=== PATIENT | female | born 1980 | race Caucasian/White ===

== ENCOUNTER 2016-09-20 10:21 | Emergency (ER) | payer BC ==
[~2016-09-20] VITALS: Ht 162.6 cm; Wt 46.8 kg
[~2016-09-20 10:21] MED LIST: ALPRAZOLAM; AMOXICILLIN; AMOXICILLIN875 MG PO; ASPIRIN 32325 MG/TAB PO; AUGMENTIN 875 M1 TAB PO; B-121000 MCG INJ; B12 INJECTIONS; COLACE 100100 MG/CAP PO; DEPAKOTE250 M1 PO; DIAZEPAM PO; DROSPIRENONE; FAMILY PHARMAC0.4 MG PO; FLEXERIL 1010 MG/TAB PO; FOLIC ACID0.4 MG PO; FOLIC ACID1 MG PO; GIANVI 3 MG-0.01 TAB PO; HYDROCODONE/APAP; IMITREX 25MG TA25 MG PO; IRON 58.5 MG-251 TA1 PO; IRON50 MG PO; MAXALT10 MG PO; MINIPRESS 1M1 MG/CAP PO; NAPROXEN 3375 MG/TAB PO; NORCO 325 MG-51 TAB PO; NORCO 325 MG-7.1 TAB PO; OMNICEF 300MG300 MG PO; PERCOCET 325 MG1 TA2 PO; PHENERGAN W/CO120 M1 PO; PREDNISONE 20MG20 MG PEG; PREDNISONE20 MG PO; PRENATAL1 TA1 PO; PROVENTIL0.09 MG/A1 IH; SEROQUEL; TYLENOL 500MG500 MG PO; ULTRAM ER100 MG PO; VALIUM 5MG T5 MG/TAB PO; VIT D; VITAMIN D 50,1.25 MG PO; VITAMIN D8000 IU/ML PO; WELLBUTRIN PO; XANAX .25M0.25 MG/TA PO; ZITHROMAX Z PA250 MG PO; ZOFRAN 4MG T4 MG/TAB PO; ZOLOFT 25MG25 MG PO; ZYBAN150 MG PO; [UNRECOGNIZED DRUG - OTHER]
[2016-09-20 10:26] VITALS: BP 135/114; PULSE 116; TEMP 98.3
== END 2016-09-20 11:50 | disposition home or self-care (01) ==
LOC: COL.ER 10:21
DX: S43.401A Unspecified sprain of right shoulder joint, initial encounter (principal); S63.91XA Sprain of unspecified part of right wrist and hand, initial encounter; W00.0XXA Fall on same level due to ice and snow, initial encounter

== ENCOUNTER → 2016-12-30 | Outpatient (CLI) | payer OTHER | LOC: COL.RAD 08:12 | DX: M25.511 Pain in right shoulder (principal) ==

== ENCOUNTER 2017-04-02 16:10 | Emergency (ER) | payer BC ==
[~2017-04-02] VITALS: Ht 162.6 cm; Wt 47.3 kg
[2017-04-02 16:11] VITALS: BP 141/99; TEMP 98.8
[2017-04-02 18:54] VITALS: PULSE 86
== END 2017-04-02 18:56 | disposition home or self-care (01) ==
LOC: COL.ER 16:10
DX: S20.212A Contusion of left front wall of thorax, initial encounter (principal); S20.222A Contusion of left back wall of thorax, initial encounter; W50.0XXA Accidental hit or strike by another person, initial encounter; Y92.009 Unspecified place in unspecified non-institutional (private) residence as the place of occurrence of the external cause

== ENCOUNTER → 2017-05-05 | Outpatient (CLI) | payer OTHER | LOC: COL.RAD 05-02 12:30 | DX: M47.812 Spondylosis without myelopathy or radiculopathy, cervical region (principal) ==

== ENCOUNTER 2017-08-25 18:10 | Emergency (ER) | payer BC ==
[~2017-08-25] VITALS: Ht 162.6 cm; Wt 47.3 kg
[2017-08-25 18:24] VITALS: TEMP 98.7
[2017-08-25 18:54] LABS: COLLECTION METHOD CLEAN CATCH
[2017-08-25 18:57] LABS: BASO # 0.1 (0.0-0.2); BASO % 0.7 % (0.0-2.0); EOS # 0.1 (0.0-0.7); GRAN # 4.2 (1.4-6.5); GRAN % 54.6 % (42.2-75.2); HEMATOCRIT 40.6 % (37.0-47.0); HEMOGLOBIN 13.8 g/dl (12.5-16.0); LYMPH # 2.7 (1.2-3.4); LYMPH % 35.6 % (20.0-51.0); MEAN CELL VOLUME 101 fl (80.0-100.0); MEAN CORPUSCULAR HEMOGLOBIN 34 pg (27.0-31.0); MEAN CORPUSCULAR HGB CONC 34 g/dl (33.0-37.0); MEAN PLATELET VOLUME 9.8 fl (7.4-10.4); MONO # 0.6 (0.1-0.6); PLATELET COUNT 255 K/mm3 (130-400); RED BLOOD COUNT 4.03 M/mm3 (4.10-5.30); WHITE BLOOD COUNT 7.6 K/mm3 (4.8-10.8)
[2017-08-25 19:00] LABS: MUCOUS Present /lpf; PH 5 (5-8); SQUAMOUS EPITHELIAL 0-2 /hpf; URINE APPEARANCE Clear; URINE BACTERIA Rare /hpf; URINE BILIRUBIN Negative (NEGATIVE); URINE BLOOD Negative (NEGATIVE); URINE COLOR Yellow; URINE GLUCOSE Negative (NEGATIVE); URINE KETONE Negative (NEGATIVE); URINE LEUKOCYTE ESTERASE Negative (NEGATIVE); URINE PROTEIN(semi-quant) Negative (NEGATIVE); URINE RBC 0-2 /hpf; URINE UROBILINOGEN Negative (NEGATIVE)
[2017-08-25 19:09] LABS: ADJUSTED CALCIUM 8.9 mg/dL (8.4-10.2); ALANINE AMINOTRANSFERASE 29 U/L (9-52); ALKALINE PHOSPHATASE 54 U/L (50-136); ANION GAP 12 mmol/L (7-16); BILIRUBIN,TOTAL 0.7 mg/dL (0.0-1.0); BLOOD UREA NITROGEN 8 mg/dL (7-17); CALCIUM 9.7 mg/dL (8.4-10.2); CARBON DIOXIDE 23 mmol/L (22-30); CHLORIDE 108 mmol/L (98-107); CREATININE, serum 0.62 mg/dL (0.52-1.25); GLUCOSE 88 mg/dL (74-106); LIPASE 91 U/L (23-300); SODIUM 143 mmol/L (137-145); TOTAL PROTEIN 7.8 gm/dL (6.4-8.2)
[2017-08-25 19:10] LABS: C-REACTIVE PROTEIN < 0.5 mg/dL (0.0-0.9)
[2017-08-25] MEDS ORDERED: ULTRAM 50MG TAB50 MG PO (19:50)
[2017-08-25] MEDS ORDERED: CEPHALEXIN500 M1 PO (19:50)
[2017-08-25] MEDS ORDERED: ZOFRAN ODT4 MG PO (20:01)
[2017-08-25 20:12] VITALS: BP 132/87; PULSE 88
== END 2017-08-25 20:14 | disposition home or self-care (01) ==
LOC: COL.ER 18:10
PROVIDERS: Emergency Medicine
DX: N39.0 Urinary tract infection, site not specified (principal); N12 Tubulo-interstitial nephritis, not specified as acute or chronic; F17.210 Nicotine dependence, cigarettes, uncomplicated; Z87.442 Personal history of urinary calculi; Z90.49 Acquired absence of other specified parts of digestive tract
CPT/HCPCS: J2405; J3010; J7030

== ENCOUNTER → 2017-08-29 | Outpatient (CLI) | payer BC ==
[~2017-08-29] MED LIST changes: +CEPHALEXIN500 M1 PO; +ULTRAM 50MG TAB50 MG PO; +ZOFRAN ODT4 MG PO
== END ==
LOC: COL.RAD 09:22
DX: R10.2 Pelvic and perineal pain (principal)

== ENCOUNTER 2017-09-04 19:51 | Emergency (ER) | payer BC ==
[~2017-09-04] VITALS: Ht 162.6 cm; Wt 46.8 kg
[2017-09-04 19:56] VITALS: BP 156/90; TEMP 98.1
[2017-09-04] MEDS ORDERED: AMOXICILLIN 8751 TAB PO (21:51)
[2017-09-04 22:05] VITALS: PULSE 68
== END 2017-09-04 22:06 | disposition home or self-care (01) ==
LOC: COL.ER 19:51
DX: H66.91 Otitis media, unspecified, right ear (principal); G43.909 Migraine, unspecified, not intractable, without status migrainosus
CPT/HCPCS: J1885

== ENCOUNTER 2017-11-15 20:33 | Emergency (ER) | payer BC ==
[~2017-11-15] VITALS: Ht 162.6 cm; Wt 49.8 kg
[~2017-11-15 20:33] MED LIST changes: +AMOXICILLIN 8751 TAB PO
[2017-11-15 20:35] VITALS: TEMP 98.9
[2017-11-15] MEDS ORDERED: PERIACTIN 4MG TA4 MG PO (20:44)
[2017-11-15] MEDS ORDERED: PERCOCET 325 MG1 TA2 PO (20:44)
[2017-11-15] MEDS ORDERED: IMITREX100 MG PO (21:25)
[2017-11-15] MEDS ORDERED: NORCO 325 MG-51 TAB PO (23:09)
[2017-11-15 23:21] VITALS: BP 130/82; PULSE 88
== END 2017-11-15 23:22 | disposition home or self-care (01) ==
LOC: COL.ER 20:33
DX: S54.12XA Injury of median nerve at forearm level, left arm, initial encounter (principal); W50.0XXA Accidental hit or strike by another person, initial encounter; Y93.75 Activity, martial arts
CPT/HCPCS: J1885; J2405; J3010; J7030; Q4050

== ENCOUNTER 2018-02-20 23:09 | Emergency (ER) | payer BC ==
[~2018-02-20] VITALS: Ht 162.6 cm; Wt 46.8 kg
[~2018-02-20 23:09] MED LIST changes: +IMITREX100 MG PO; +PERIACTIN 4MG TA4 MG PO
[2018-02-20 23:15] VITALS: BP 135/104; TEMP 98.4
[2018-02-20] MEDS ORDERED: IBU800 M1 PO (23:24)
[2018-02-20 23:39] LABS: BASO # 0.1 (0.0-0.2); BASO % 0.5 % (0.0-2.0); EOS # 0.2 (0.0-0.7); EOS % 1.8 % (0-4.0); GRAN # 8.1 (1.4-6.5); GRAN % 67.4 % (42.2-75.2); HEMOGLOBIN 12.3 g/dl (12.5-16.0); LYMPH # 2.8 (1.2-3.4); LYMPH % 23.1 % (20.0-51.0); MEAN CELL VOLUME 100 fl (80.0-100.0); MEAN CORPUSCULAR HEMOGLOBIN 35 pg (27.0-31.0); MEAN CORPUSCULAR HGB CONC 35 g/dl (33.0-37.0); MEAN PLATELET VOLUME 9.5 fl (7.4-10.4); MONO # 0.8 (0.1-0.6); PLATELET COUNT 247 K/mm3 (130-400); RED BLOOD COUNT 3.51 M/mm3 (4.10-5.30); REDCELL DISTRIBUTION WIDTH-CV 11.5 % (11.5-14.5)
[2018-02-20 23:49] LABS: HEMATOCRIT 35.1 % (37.0-47.0)
[2018-02-20 23:50] LABS: ALBUMIN 4.2 gm/dL (3.5-5.0); BILIRUBIN,TOTAL 0.4 mg/dL (0.0-1.0); C-REACTIVE PROTEIN 2.5 mg/dL (0.0-0.9); CALCIUM 9.6 mg/dL (8.4-10.2); CREATININE, serum 0.56 mg/dL (0.52-1.25); POTASSIUM 3.5 mmol/L (3.4-5.0); TOTAL PROTEIN 7.7 gm/dL (6.4-8.2)
[2018-02-21 00:39] VITALS: PULSE 101
== END 2018-02-21 00:39 | disposition left against medical advice (07) ==
LOC: COL.ER 23:09 → OB 02-21 00:22 → COL.ER 02-21 00:22
PROVIDERS: Family Medicine
DX: N93.9 Abnormal uterine and vaginal bleeding, unspecified (principal); G89.18 Other acute postprocedural pain; F43.10 Post-traumatic stress disorder, unspecified; F41.9 Anxiety disorder, unspecified; F32.9 Major depressive disorder, single episode, unspecified; Z90.49 Acquired absence of other specified parts of digestive tract
CPT/HCPCS: J1885; J2405; J2550; J7030

== ENCOUNTER 2018-11-13 10:54 | Emergency (ER) | payer BC ==
[~2018-11-13] VITALS: Ht 162.6 cm; Wt 46.8 kg
[~2018-11-13 10:54] MED LIST changes: +IBU800 M1 PO
[2018-11-13 10:56] VITALS: TEMP 98.5
[2018-11-13 12:00] LABS: BASO % 0.4 % (0.0-2.0); EOS # 0.1 (0.0-0.7); EOS % 2.1 % (0-4.0); GRAN % 53.2 % (42.2-75.2); HEMATOCRIT 39.7 % (37.0-47.0); HEMOGLOBIN 13.7 g/dl (12.5-16.0); LYMPH % 35.3 % (20.0-51.0); MEAN CELL VOLUME 101 fl (80.0-100.0); MEAN CORPUSCULAR HEMOGLOBIN 35 pg (27.0-31.0); MEAN CORPUSCULAR HGB CONC 35 g/dl (33.0-37.0); MEAN PLATELET VOLUME 9.5 fl (7.4-10.4); MONO # 0.5 (0.1-0.6); MONO % 8.6 % (1.7-9.3); PLATELET COUNT 253 K/mm3 (130-400); RED BLOOD COUNT 3.93 M/mm3 (4.10-5.30); REDCELL DISTRIBUTION WIDTH-CV 11.9 % (11.5-14.5)
[2018-11-13 12:17] LABS: ALANINE AMINOTRANSFERASE 19 U/L (9-52); ALBUMIN 4.5 gm/dL (3.5-5.0); ALKALINE PHOSPHATASE 66 U/L (50-136); ANION GAP 8 mmol/L (7-16); AST,SGOT 21 U/L (15-37); BILIRUBIN,TOTAL 0.4 mg/dL (0.0-1.0); BLOOD UREA NITROGEN 5 mg/dL (7-17); CALCIUM 9.7 mg/dL (8.4-10.2); CARBON DIOXIDE 29 mmol/L (22-30); CHLORIDE 104 mmol/L (98-107); CREATININE, serum 0.54 mg/dL (0.52-1.25); GLUCOSE 83 mg/dL (74-106); POTASSIUM 3.5 mmol/L (3.4-5.0); SODIUM 141 mmol/L (137-145); TOTAL PROTEIN 7.7 gm/dL (6.4-8.2)
[2018-11-13 12:30] LABS: TROPONIN-I < 0.012 ng/mL (0.000-0.035)
[2018-11-13 12:51] LABS: COLLECTION METHOD CLEAN CATCH
[2018-11-13 12:59] LABS: PH 7 (5-8); SQUAMOUS EPITHELIAL 0-2 /hpf; URINE APPEARANCE Clear; URINE BACTERIA None Seen /hpf; URINE BILIRUBIN Negative (NEGATIVE); URINE BLOOD Negative (NEGATIVE); URINE COLOR Colorless; URINE GLUCOSE Negative (NEGATIVE); URINE KETONE Negative (NEGATIVE); URINE LEUKOCYTE ESTERASE Negative (NEGATIVE); URINE NITRATE Negative (NEGATIVE); URINE PROTEIN(semi-quant) Negative (NEGATIVE); URINE RBC 0-2 /hpf; URINE UROBILINOGEN Negative (NEGATIVE)
[2018-11-13] MEDS ORDERED: VALIUM 2MG T2 MG/TAB PO (15:18)
[2018-11-13] MEDS ORDERED: ANTIVERT 25MG25 MG PO (15:18)
[2018-11-13] MEDS ORDERED: NEXIUM 40MG40 MG PO (15:18)
[2018-11-13 15:19] VITALS: BP 125/98; PULSE 89
== END 2018-11-13 15:30 | disposition home or self-care (01) ==
LOC: COL.ER 10:54
PROVIDERS: Emergency Medicine
DX: R42 Dizziness and giddiness (principal); J06.9 Acute upper respiratory infection, unspecified; R07.89 Other chest pain
CPT/HCPCS: J1170; J2060; J2405; J7030

== ENCOUNTER 2019-03-04 22:46 | Emergency (ER) | payer BC ==
[~2019-03-04] VITALS: Ht 162.6 cm; Wt 47.3 kg
[~2019-03-04 22:46] MED LIST changes: +ANTIVERT 25MG25 MG PO; +NEXIUM 40MG40 MG PO; +VALIUM 2MG T2 MG/TAB PO
[2019-03-04 22:50] VITALS: TEMP 98.5
[2019-03-04 23:26] LABS: COLLECTION METHOD CLEAN CATCH
[2019-03-04 23:32] LABS: PH 6 (5-8); SQUAMOUS EPITHELIAL 0-2 /hpf; URINE APPEARANCE Clear; URINE BACTERIA Rare /hpf; URINE BILIRUBIN Negative (NEGATIVE); URINE BLOOD 2+ (NEGATIVE); URINE COLOR Colorless; URINE GLUCOSE Negative (NEGATIVE); URINE KETONE Negative (NEGATIVE); URINE LEUKOCYTE ESTERASE Negative (NEGATIVE); URINE NITRATE Negative (NEGATIVE); URINE PROTEIN(semi-quant) Negative (NEGATIVE); URINE RBC 0-2 /hpf; URINE UROBILINOGEN Negative (NEGATIVE)
[2019-03-05] MEDS ORDERED: FLEXERIL 1010 MG/TAB PO (00:19)
[2019-03-05] MEDS ORDERED: NORCO 325 MG-51 TAB PO (00:19)
[2019-03-05 00:30] VITALS: BP 137/102; PULSE 90
== END 2019-03-05 00:30 | disposition home or self-care (01) ==
LOC: COL.ER 22:46
PROVIDERS: Nurse Practitioner
DX: M54.5 Low back pain (principal); F17.210 Nicotine dependence, cigarettes, uncomplicated; Z87.442 Personal history of urinary calculi; Z88.2 Allergy status to sulfonamides; Z88.1 Allergy status to other antibiotic agents
CPT/HCPCS: J1885

== ENCOUNTER 2019-10-11 17:53 | Emergency (ER) | payer BC ==
[~2019-10-11] VITALS: Ht 162.6 cm; Wt 46.8 kg
[2019-10-11 18:11] VITALS: TEMP 98.3
[2019-10-11 18:37] LABS: COLLECTION METHOD CLEAN CATCH
[2019-10-11 18:40] LABS: BASO # 0.1 (0.0-0.2); BASO % 0.5 % (0.0-2.0); EOS # 0.1 (0.0-0.7); EOS % 1.4 % (0-4.0); GRAN # 6.7 (1.4-6.5); GRAN % 69.5 % (42.2-75.2); HEMATOCRIT 43.6 % (37.0-47.0); HEMOGLOBIN 14.9 g/dl (12.5-16.0); LYMPH # 2.1 (1.2-3.4); LYMPH % 22.1 % (20.0-51.0); MEAN CELL VOLUME 101 fl (80.0-100.0); MEAN CORPUSCULAR HEMOGLOBIN 35 pg (27.0-31.0); MEAN CORPUSCULAR HGB CONC 34 g/dl (33.0-37.0); MEAN PLATELET VOLUME 9.8 fl (7.4-10.4); MONO # 0.6 (0.1-0.6); MONO % 6.3 % (1.7-9.3); PLATELET COUNT 269 K/mm3 (130-400); RED BLOOD COUNT 4.32 M/mm3 (4.10-5.30); REDCELL DISTRIBUTION WIDTH-CV 11.3 % (11.5-14.5)
[2019-10-11 18:48] LABS: MUCOUS Present /lpf; PH 7 (5-8); URINE APPEARANCE Hazy; URINE BACTERIA Moderate /hpf; URINE BILIRUBIN Negative (NEGATIVE); URINE BLOOD Negative (NEGATIVE); URINE COLOR Yellow; URINE GLUCOSE Negative (NEGATIVE); URINE KETONE Negative (NEGATIVE); URINE LEUKOCYTE ESTERASE Negative (NEGATIVE); URINE NITRATE Positive (NEGATIVE); URINE PROTEIN(semi-quant) Negative (NEGATIVE); URINE RBC 0-2 /hpf; URINE UROBILINOGEN Negative (NEGATIVE)
[2019-10-11 18:58] LABS: ALANINE AMINOTRANSFERASE 15 U/L (9-52); ALBUMIN 4.9 gm/dL (3.5-5.0); ALKALINE PHOSPHATASE 48 U/L (50-136); ANION GAP 10 mmol/L (7-16); AST,SGOT 25 U/L (15-37); BILIRUBIN,TOTAL 0.4 mg/dL (0.0-1.0); BLOOD UREA NITROGEN 10 mg/dL (7-17); CALCIUM 10.1 mg/dL (8.4-10.2); CARBON DIOXIDE 25 mmol/L (22-30); CHLORIDE 107 mmol/L (98-107); CREATININE, serum 0.56 (0.52-1.25); GLUCOSE 96 mg/dL (74-106); LIPASE 168 U/L (23-300); POTASSIUM 4.2 mmol/L (3.4-5.0); SODIUM 142 mmol/L (137-145); TOTAL PROTEIN 7.9 gm/dL (6.4-8.2)
[2019-10-11 19:06] LABS: C-REACTIVE PROTEIN < 0.5 mg/dL (0.0-0.9)
[2019-10-11] MEDS ORDERED: PRILOTC PO (20:09)
[2019-10-11] MEDS ORDERED: BENTYL 20MG20 MG/TAB PO (20:09)
[2019-10-11] MEDS ORDERED: DULCOLAX STOOL100 MG PO (20:41)
[2019-10-11] MEDS ORDERED: MIRALAX238G PO (20:41)
[2019-10-11 21:00] VITALS: BP 140/96; PULSE 92
== END 2019-10-11 21:00 | disposition home or self-care (01) ==
LOC: COL.ER 17:53
PROVIDERS: Emergency Medicine
DX: R10.84 Generalized abdominal pain (principal); G43.909 Migraine, unspecified, not intractable, without status migrainosus; F17.210 Nicotine dependence, cigarettes, uncomplicated
CPT/HCPCS: J0500; J1200; J2270; J2405; J7030; Q9967

== ENCOUNTER 2020-02-10 08:49 | Emergency (ER) | payer BC ==
[~2020-02-10] VITALS: Ht 162.6 cm; Wt 49.1 kg
[~2020-02-10 08:49] MED LIST changes: +BENTYL 20MG20 MG/TAB PO; +CATAPRES 0.1MG0.1 MG PO; +DULCOLAX STOOL100 MG PO; +MIRALAX238G PO; +PRILOTC PO
[2020-02-10 08:50] VITALS: TEMP 97.2
[2020-02-10] MEDS ORDERED: NORVASC2.5 MG PO (08:57)
[2020-02-10] MEDS ORDERED: XANAX 0.5MG0.5 MG PO (08:58)
[2020-02-10] MEDS ORDERED: PERIACTIN 4MG TA4 MG PO (08:59)
[2020-02-10 09:15] LABS: BASO # 0.1 (0.0-0.2); BASO % 0.8 % (0.0-2.0); EOS # 0.1 (0.0-0.7); EOS % 1.5 % (0-4.0); GRAN # 3.8 (1.4-6.5); GRAN % 58.1 % (42.2-75.2); HEMATOCRIT 39.8 % (37.0-47.0); HEMOGLOBIN 13.8 g/dl (12.5-16.0); LYMPH % 30.1 % (20.0-51.0); MEAN CELL VOLUME 99 fl (80.0-100.0); MEAN CORPUSCULAR HEMOGLOBIN 34 pg (27.0-31.0); MEAN CORPUSCULAR HGB CONC 35 g/dl (33.0-37.0); MEAN PLATELET VOLUME 9.2 fl (7.4-10.4); MONO # 0.6 (0.1-0.6); MONO % 9.3 % (1.7-9.3); PLATELET COUNT 294 K/mm3 (130-400); RED BLOOD COUNT 4.01 M/mm3 (4.10-5.30); REDCELL DISTRIBUTION WIDTH-CV 11.2 % (11.5-14.5)
[2020-02-10 09:23] LABS: ALANINE AMINOTRANSFERASE 16 U/L (4-34); ALBUMIN 4.4 gm/dL (3.5-5.0); ALKALINE PHOSPHATASE 48 U/L (50-136); ANION GAP 8 mmol/L (7-16); AST,SGOT 28 U/L (15-37); BILIRUBIN,TOTAL 0.6 mg/dL (0.0-1.0); BLOOD UREA NITROGEN 10 mg/dL (7-17); CALCIUM 9.8 mg/dL (8.4-10.2); CARBON DIOXIDE 22 mmol/L (22-30); CHLORIDE 109 mmol/L (98-107); CREATININE, serum 0.52 (0.52-1.25); GLUCOSE 80 mg/dL (74-106); MAGNESIUM 2.1 mg/dL (1.6-2.3); PHOSPHOROUS 1.4 mg/dL (2.5-4.5); POTASSIUM 3.9 mmol/L (3.4-5.0); SODIUM 139 mmol/L (137-145); TOTAL PROTEIN 7.6 gm/dL (6.4-8.2)
[2020-02-10 09:54] LABS: TSH w REFLEX 0.246 uIU/mL (0.465-4.680)
[2020-02-10 09:55] LABS: TROPONIN-I < 0.012 ng/mL (0.000-0.035)
[2020-02-10 11:11] LABS: COLLECTION METHOD CLEAN CATCH
[2020-02-10 11:19] LABS: PH 7 (5-8); SQUAMOUS EPITHELIAL 0-2 /hpf; URINE APPEARANCE Clear; URINE BACTERIA Rare /hpf; URINE BILIRUBIN Negative (NEGATIVE); URINE BLOOD 1+ (NEGATIVE); URINE COLOR Straw; URINE GLUCOSE Negative (NEGATIVE); URINE KETONE Negative (NEGATIVE); URINE LEUKOCYTE ESTERASE Negative (NEGATIVE); URINE NITRATE Negative (NEGATIVE); URINE PROTEIN(semi-quant) Negative (NEGATIVE); URINE RBC None Seen /hpf; URINE UROBILINOGEN Negative (NEGATIVE)
[2020-02-10 13:25] VITALS: BP 117/85; PULSE 89
== END 2020-02-10 13:25 | disposition home or self-care (01) ==
LOC: COL.ER 08:49
PROVIDERS: Emergency Medicine
DX: R51 Headache (principal); R07.89 Other chest pain; F41.9 Anxiety disorder, unspecified; I10 Essential (primary) hypertension; F43.10 Post-traumatic stress disorder, unspecified; F17.210 Nicotine dependence, cigarettes, uncomplicated; Z86.69 Personal history of other diseases of the nervous system and sense organs; Z90.49 Acquired absence of other specified parts of digestive tract
CPT/HCPCS: J1200; J1790; J7030

== ENCOUNTER 2020-03-02 19:21 | Emergency (ER) | payer BC ==
[~2020-03-02] VITALS: Ht 162.6 cm; Wt 49.1 kg
[~2020-03-02 19:21] MED LIST changes: +NORVASC2.5 MG PO; +XANAX 0.5MG0.5 MG PO
[2020-03-02 19:34] VITALS: BP 105/77; TEMP 98.5
[2020-03-02 20:29] LABS: COLLECTION METHOD CATHETER
[2020-03-02 20:33] LABS: BASO % 0.5 % (0.0-2.0); EOS # 0.1 (0.0-0.7); EOS % 1.3 % (0-4.0); GRAN # 5.1 (1.4-6.5); GRAN % 65.5 % (42.2-75.2); HEMATOCRIT 39.7 % (37.0-47.0); HEMOGLOBIN 13.6 g/dl (12.5-16.0); LYMPH % 25.5 % (20.0-51.0); MEAN CELL VOLUME 100 fl (80.0-100.0); MEAN CORPUSCULAR HEMOGLOBIN 34 pg (27.0-31.0); MEAN CORPUSCULAR HGB CONC 34 g/dl (33.0-37.0); MEAN PLATELET VOLUME 9.7 fl (7.4-10.4); MONO # 0.6 (0.1-0.6); MONO % 7.1 % (1.7-9.3); PLATELET COUNT 239 K/mm3 (130-400); RED BLOOD COUNT 3.97 M/mm3 (4.10-5.30); REDCELL DISTRIBUTION WIDTH-CV 11.3 % (11.5-14.5)
[2020-03-02 20:38] LABS: MUCOUS Present /lpf; PH 7 (5-8); SQUAMOUS EPITHELIAL 0-2 /hpf; URINE APPEARANCE Clear; URINE BACTERIA None Seen /hpf; URINE BILIRUBIN Negative (NEGATIVE); URINE BLOOD Negative (NEGATIVE); URINE COLOR Yellow; URINE GLUCOSE Negative (NEGATIVE); URINE KETONE Negative (NEGATIVE); URINE LEUKOCYTE ESTERASE Negative (NEGATIVE); URINE NITRATE Negative (NEGATIVE); URINE PROTEIN(semi-quant) Negative (NEGATIVE); URINE RBC 0-2 /hpf; URINE UROBILINOGEN Negative (NEGATIVE)
[2020-03-02 20:47] LABS: ALBUMIN 4.3 gm/dL (3.5-5.0); BILIRUBIN,TOTAL 0.6 mg/dL (0.0-1.0); C-REACTIVE PROTEIN 0.8 mg/dL (0.0-0.9); CALCIUM 9.5 mg/dL (8.4-10.2); CREATININE, serum 0.54 (0.52-1.25); POTASSIUM 3.6 mmol/L (3.4-5.0); TOTAL PROTEIN 7.4 gm/dL (6.4-8.2)
[2020-03-02 21:48] VITALS: PULSE 90
[2020-03-03] MEDS ORDERED: MOTRIN 800800 MG/TAB PO (18:49)
[2020-03-03] MEDS ORDERED: NORCO 325 MG-51 TAB PO (18:50)
== END 2020-03-02 21:48 | disposition home or self-care (01) ==
LOC: COL.ER 19:21
PROVIDERS: Emergency Medicine
DX: R10.32 Left lower quadrant pain (principal); R10.2 Pelvic and perineal pain; R10.31 Right lower quadrant pain; R10.9 Unspecified abdominal pain; F17.210 Nicotine dependence, cigarettes, uncomplicated; Z90.49 Acquired absence of other specified parts of digestive tract
CPT/HCPCS: J1885; J2405; J3010; J7030

== ENCOUNTER 2020-03-03 18:25 | Emergency (ER) | payer BC ==
[2020-03-03 18:37] VITALS: TEMP 97.9
[2020-03-03] MEDS ORDERED: MOTRIN 800800 MG/TAB PO (18:49)
[2020-03-03] MEDS ORDERED: NORCO 325 MG-51 TAB PO (18:50)
[2020-03-03 19:03] LABS: BASO % 0.4 % (0.0-2.0); EOS # 0.2 (0.0-0.7); EOS % 1.8 % (0-4.0); GRAN # 6.4 (1.4-6.5); GRAN % 67.5 % (42.2-75.2); HEMATOCRIT 38.1 % (37.0-47.0); HEMOGLOBIN 13.1 g/dl (12.5-16.0); LYMPH # 2.2 (1.2-3.4); LYMPH % 23.6 % (20.0-51.0); MEAN CELL VOLUME 101 fl (80.0-100.0); MEAN CORPUSCULAR HEMOGLOBIN 35 pg (27.0-31.0); MEAN CORPUSCULAR HGB CONC 34 g/dl (33.0-37.0); MEAN PLATELET VOLUME 9.7 fl (7.4-10.4); MONO # 0.6 (0.1-0.6); MONO % 6.5 % (1.7-9.3); PLATELET COUNT 239 K/mm3 (130-400); RED BLOOD COUNT 3.79 M/mm3 (4.10-5.30); REDCELL DISTRIBUTION WIDTH-CV 11.4 % (11.5-14.5)
[2020-03-03 19:17] LABS: ALANINE AMINOTRANSFERASE 14 U/L (4-34); ALBUMIN 4.1 gm/dL (3.5-5.0); ALKALINE PHOSPHATASE 49 U/L (50-136); ANION GAP 8 mmol/L (7-16); AST,SGOT 23 U/L (15-37); BILIRUBIN,TOTAL 0.3 mg/dL (0.0-1.0); BLOOD UREA NITROGEN 5 mg/dL (7-17); CALCIUM 9.3 mg/dL (8.4-10.2); CARBON DIOXIDE 24 mmol/L (22-30); CHLORIDE 106 mmol/L (98-107); CREATININE, serum 0.54 (0.52-1.25); GLUCOSE 119 mg/dL (74-106); POTASSIUM 3.6 mmol/L (3.4-5.0); SODIUM 138 mmol/L (137-145); TOTAL PROTEIN 7.2 gm/dL (6.4-8.2)
[2020-03-03 19:19] LABS: C-REACTIVE PROTEIN < 0.5 mg/dL (0.0-0.9)
[2020-03-03 21:20] VITALS: BP 123/84; PULSE 92
== END 2020-03-03 21:25 | disposition home or self-care (01) ==
LOC: COL.ER 18:25
PROVIDERS: Nurse Practitioner
DX: R10.31 Right lower quadrant pain (principal); F17.210 Nicotine dependence, cigarettes, uncomplicated; R11.0 Nausea; F41.9 Anxiety disorder, unspecified; G43.909 Migraine, unspecified, not intractable, without status migrainosus; F43.10 Post-traumatic stress disorder, unspecified; Z88.2 Allergy status to sulfonamides; Z88.8 Allergy status to other drugs, medicaments and biological substances; Z88.1 Allergy status to other antibiotic agents
CPT/HCPCS: J1170; J1885; J2405; J7030

== ENCOUNTER 2020-05-20 23:36 | Emergency (ER) | payer BC ==
[~2020-05-20] VITALS: Ht 162.6 cm; Wt 49.5 kg
[~2020-05-20 23:36] MED LIST changes: +MOTRIN 800800 MG/TAB PO
[2020-05-20 23:42] VITALS: TEMP 98.1
[2020-05-20] MEDS ORDERED: IMITREX100 MG PO (23:44)
[2020-05-21] MEDS ORDERED: FIORICET 325 MG1 TA1 PO (01:54)
[2020-05-21 02:12] VITALS: BP 136/85; PULSE 96
== END 2020-05-21 02:13 | disposition home or self-care (01) ==
LOC: COL.ER 23:36
DX: G43.909 Migraine, unspecified, not intractable, without status migrainosus (principal); F17.210 Nicotine dependence, cigarettes, uncomplicated; Z90.49 Acquired absence of other specified parts of digestive tract; Z88.2 Allergy status to sulfonamides
CPT/HCPCS: J0595; J1885

== ENCOUNTER 2020-06-12 22:19 | Emergency (ER) | payer BC ==
[~2020-06-12] VITALS: Ht 162.6 cm; Wt 50.0 kg
[~2020-06-12 22:19] MED LIST changes: +FIORICET 325 MG1 TA1 PO
[2020-06-13 00:23] VITALS: BP 124/76; PULSE 84; TEMP 97.7
== END 2020-06-13 00:20 | disposition home or self-care (01) ==
LOC: COL.ER 22:19
DX: S70.02XA Contusion of left hip, initial encounter (principal); S20.212A Contusion of left front wall of thorax, initial encounter; I10 Essential (primary) hypertension; G43.909 Migraine, unspecified, not intractable, without status migrainosus; F17.210 Nicotine dependence, cigarettes, uncomplicated; Z90.49 Acquired absence of other specified parts of digestive tract; Z88.2 Allergy status to sulfonamides; Z88.8 Allergy status to other drugs, medicaments and biological substances; W18.2XXA Fall in (into) shower or empty bathtub, initial encounter
CPT/HCPCS: J3010

== ENCOUNTER 2020-06-13 21:03 | Emergency (ER) | payer BC ==
[~2020-06-13] VITALS: Ht 157.5 cm; Wt 50.0 kg
[2020-06-13 21:08] VITALS: BP 132/94; TEMP 99.1
[2020-06-13 23:05] VITALS: PULSE 76
== END 2020-06-13 23:05 | disposition home or self-care (01) ==
LOC: COL.ER 21:03
DX: S13.4XXA Sprain of ligaments of cervical spine, initial encounter (principal); S23.3XXA Sprain of ligaments of thoracic spine, initial encounter; I10 Essential (primary) hypertension; F17.210 Nicotine dependence, cigarettes, uncomplicated; R40.2410 Glasgow coma scale score 13-15, unspecified time; Z88.2 Allergy status to sulfonamides; W18.2XXA Fall in (into) shower or empty bathtub, initial encounter; Y92.009 Unspecified place in unspecified non-institutional (private) residence as the place of occurrence of the external cause
CPT/HCPCS: J1885; J2405; J3010; J7030

== ENCOUNTER 2020-07-11 01:45 | Emergency (ER) | payer BC ==
[~2020-07-11] VITALS: Ht 162.6 cm; Wt 49.5 kg
[2020-07-11 01:52] VITALS: BP 116/81; TEMP 98.8
[2020-07-11] MEDS ORDERED: ATARAX 10MG10 MG/TAB PO (02:06)
[2020-07-11] MEDS ORDERED: STRATTERA80 MG PO (02:07)
[2020-07-11] MEDS ORDERED: NORCO 325 MG-101 TAB PO (02:08)
[2020-07-11 04:50] VITALS: PULSE 86
== END 2020-07-11 04:50 | disposition home or self-care (01) ==
LOC: COL.ER 01:45
DX: G43.909 Migraine, unspecified, not intractable, without status migrainosus (principal); Z88.2 Allergy status to sulfonamides
CPT/HCPCS: J1170; J1200; J1885; J2550

== ENCOUNTER 2021-01-11 12:14 | Emergency (ER) | payer BC ==
[~2021-01-11] VITALS: Ht 162.6 cm; Wt 49.1 kg
[~2021-01-11 12:14] MED LIST changes: +ATARAX 10MG10 MG/TAB PO; +NORCO 325 MG-101 TAB PO; +STRATTERA80 MG PO
[2021-01-11 12:28] VITALS: BP 126/104; TEMP 97.6
[2021-01-11 14:25] VITALS: PULSE 102
[2021-02-11] MEDS ORDERED: DIFLUCAN150 MG PO (19:53)
== END 2021-01-11 14:25 | disposition home or self-care (01) ==
LOC: COL.ER 12:14
DX: M25.512 Pain in left shoulder (principal); G43.909 Migraine, unspecified, not intractable, without status migrainosus; G89.29 Other chronic pain; F17.210 Nicotine dependence, cigarettes, uncomplicated; Z88.2 Allergy status to sulfonamides; Z88.5 Allergy status to narcotic agent; Z79.891 Long term (current) use of opiate analgesic; Z79.899 Other long term (current) drug therapy; W01.0XXA Fall on same level from slipping, tripping and stumbling without subsequent striking against object, initial encounter; Y99.0 Civilian activity done for income or pay
CPT/HCPCS: J1885

== ENCOUNTER 2021-02-07 21:35 | Emergency (ER) | payer BC ==
[~2021-02-07] VITALS: Ht 162.6 cm; Wt 49.1 kg
[2021-02-07 21:54] VITALS: TEMP 98.9
[2021-02-07 22:22] LABS: COLLECTION METHOD CLEAN CATCH
[2021-02-07 22:28] LABS: MUCOUS Present /lpf; PH 6 (5-8); URINE APPEARANCE Hazy; URINE BACTERIA Rare /hpf; URINE BILIRUBIN Negative (NEGATIVE); URINE BLOOD Negative (NEGATIVE); URINE COLOR Yellow; URINE GLUCOSE Negative (NEGATIVE); URINE KETONE Negative (NEGATIVE); URINE LEUKOCYTE ESTERASE 2+ (NEGATIVE); URINE NITRATE Negative (NEGATIVE); URINE PROTEIN(semi-quant) Negative (NEGATIVE); URINE UROBILINOGEN Negative (NEGATIVE)
[2021-02-07 22:38] LABS: BASO # 0.1 (0.0-0.2); BASO % 0.6 % (0.0-2.0); EOS # 0.1 (0.0-0.7); EOS % 1.3 % (0-4.0); GRAN # 4.5 (1.4-6.5); GRAN % 53.4 % (42.2-75.2); HEMATOCRIT 41.4 % (37.0-47.0); LYMPH # 2.9 (1.2-3.4); LYMPH % 34.9 % (20.0-51.0); MEAN CELL VOLUME 102 fl (80.0-100.0); MEAN CORPUSCULAR HEMOGLOBIN 34 pg (27.0-31.0); MEAN CORPUSCULAR HGB CONC 34 g/dl (33.0-37.0); MEAN PLATELET VOLUME 9.4 fl (7.4-10.4); MONO # 0.8 (0.1-0.6); MONO % 9.6 % (1.7-9.3); PLATELET COUNT 317 K/mm3 (130-400); RED BLOOD COUNT 4.08 M/mm3 (4.10-5.30); REDCELL DISTRIBUTION WIDTH-CV 12.6 % (11.5-14.5)
[2021-02-07 22:47] LABS: ALBUMIN 4.6 gm/dL (3.5-5.0); BILIRUBIN,TOTAL 0.4 mg/dL (0.0-1.0); CALCIUM 9.4 mg/dL (8.4-10.2); CREATININE, serum 0.59 (0.52-1.25); POTASSIUM 3.6 mmol/L (3.4-5.0); TOTAL PROTEIN 7.7 gm/dL (6.4-8.2)
[2021-02-07] MEDS ORDERED: ZOFRAN ODT4 MG PO (23:05)
[2021-02-07] MEDS ORDERED: CEFTIN500 MG PO (23:05)
[2021-02-07] MEDS ORDERED: NORCO 325 MG-51 TAB PO (23:05)
[2021-02-07 23:13] VITALS: BP 125/90; PULSE 102
[2021-02-11] MEDS ORDERED: DIFLUCAN150 MG PO (19:53)
== END 2021-02-07 23:17 | disposition home or self-care (01) ==
LOC: COL.ER 21:35
PROVIDERS: Emergency Medicine
DX: N39.0 Urinary tract infection, site not specified (principal); F41.9 Anxiety disorder, unspecified; F17.210 Nicotine dependence, cigarettes, uncomplicated; Z87.442 Personal history of urinary calculi; Z88.8 Allergy status to other drugs, medicaments and biological substances
CPT/HCPCS: J1885; J3010; J7030

== ENCOUNTER 2021-02-09 21:03 | Emergency (ER) | payer BC ==
[~2021-02-09] VITALS: Ht 162.6 cm; Wt 49.1 kg
[~2021-02-09 21:03] MED LIST changes: +CEFTIN500 MG PO
[2021-02-09 21:57] LABS: COLLECTION METHOD CLEAN CATCH
[2021-02-09 22:10] LABS: BUDDING YEAST Present /hpf; PH 6 (5-8); URINE APPEARANCE Hazy; URINE BACTERIA Moderate /hpf; URINE BILIRUBIN Negative (NEGATIVE); URINE BLOOD Negative (NEGATIVE); URINE COLOR Straw; URINE GLUCOSE Negative (NEGATIVE); URINE KETONE Negative (NEGATIVE); URINE LEUKOCYTE ESTERASE 3+ (NEGATIVE); URINE NITRATE Negative (NEGATIVE); URINE PROTEIN(semi-quant) Negative (NEGATIVE); URINE UROBILINOGEN Negative (NEGATIVE)
[2021-02-09] MEDS ORDERED: PRIL40 PO (23:20)
[2021-02-09 23:38] VITALS: BP 138/89; PULSE 96; TEMP 98.3
[2021-02-11] MEDS ORDERED: DIFLUCAN150 MG PO (19:53)
== END 2021-02-09 23:38 | disposition home or self-care (01) ==
LOC: COL.ER 21:03
PROVIDERS: Nurse Practitioner Primary Care
DX: N39.0 Urinary tract infection, site not specified (principal); K29.70 Gastritis, unspecified, without bleeding; K59.00 Constipation, unspecified; G43.909 Migraine, unspecified, not intractable, without status migrainosus; F17.210 Nicotine dependence, cigarettes, uncomplicated; Z90.49 Acquired absence of other specified parts of digestive tract; Z32.02 Encounter for pregnancy test, result negative; Z88.1 Allergy status to other antibiotic agents; Z79.899 Other long term (current) drug therapy
CPT/HCPCS: J0696; J1885; J2405; J7030; Q9967

== ENCOUNTER 2021-03-30 11:27 | Emergency (ER) | payer BC ==
[~2021-03-30] VITALS: Ht 162.6 cm; Wt 49.5 kg
[~2021-03-30 11:27] MED LIST changes: +DIFLUCAN150 MG PO; +PRIL40 PO
[2021-03-30 11:47] VITALS: TEMP 98.8
[2021-03-30] MEDS ORDERED: NORVASC 10MG10 MG PO (13:51)
[2021-03-30] MEDS ORDERED: FLEXERIL 1010 MG/TAB PO (14:19)
[2021-03-30] MEDS ORDERED: MEDROL 4MG DOSPA4 MG PO (14:23)
[2021-03-30 14:53] VITALS: BP 129/87; PULSE 98
== END 2021-03-30 14:53 | disposition home or self-care (01) ==
LOC: COL.ER 11:27
DX: S20.229A Contusion of unspecified back wall of thorax, initial encounter (principal); S70.01XA Contusion of right hip, initial encounter; F17.210 Nicotine dependence, cigarettes, uncomplicated; W01.198A Fall on same level from slipping, tripping and stumbling with subsequent striking against other object, initial encounter
CPT/HCPCS: J1885; J2360

== ENCOUNTER 2021-06-23 17:34 | Emergency (ER) | payer BC ==
[~2021-06-23] VITALS: Ht 162.6 cm; Wt 49.5 kg
[~2021-06-23 17:34] MED LIST changes: +MEDROL 4MG DOSPA4 MG PO; +NORVASC 10MG10 MG PO
[2021-06-23 18:10] VITALS: TEMP 98.6
[2021-06-23 19:08] LABS: COLLECTION METHOD CLEAN CATCH
[2021-06-23 19:18] LABS: MUCOUS Present /lpf; PH 6 (5-8); URINE APPEARANCE Clear; URINE BACTERIA Rare /hpf; URINE BILIRUBIN Negative (NEGATIVE); URINE BLOOD Negative (NEGATIVE); URINE COLOR Straw; URINE GLUCOSE Negative (NEGATIVE); URINE KETONE Negative (NEGATIVE); URINE LEUKOCYTE ESTERASE Negative (NEGATIVE); URINE NITRATE Negative (NEGATIVE); URINE PROTEIN(semi-quant) Negative (NEGATIVE); URINE RBC None Seen /hpf; URINE UROBILINOGEN Negative (NEGATIVE)
[2021-06-23 21:21] LABS: BASO % 0.4 % (0.0-2.0); EOS # 0.1 K/mm3 (0.0-0.7); EOS % 1.1 % (0-4.0); GRAN # 5.6 K/mm3 (1.4-6.5); GRAN % 66.2 % (42.2-75.2); HEMOGLOBIN 12.4 g/dl (12.5-16.0); LYMPH # 2.1 K/mm3 (1.2-3.4); MEAN CELL VOLUME 104 fl (80.0-100.0); MEAN CORPUSCULAR HEMOGLOBIN 35 pg (27.0-31.0); MEAN CORPUSCULAR HGB CONC 34 g/dl (33.0-37.0); MEAN PLATELET VOLUME 9.9 fl (7.4-10.4); MONO # 0.6 K/mm3 (0.1-0.6); MONO % 7.1 % (1.7-9.3); PLATELET COUNT 248 K/mm3 (130-400); RED BLOOD COUNT 3.55 M/mm3 (4.10-5.30); REDCELL DISTRIBUTION WIDTH-CV 11.9 % (11.5-14.5)
[2021-06-23 21:41] LABS: ALBUMIN 4.1 gm/dL (3.5-5.0); BILIRUBIN,TOTAL 0.3 mg/dL (0.2-1.2); C-REACTIVE PROTEIN 0.1 mg/dL (0.00-0.50); CREATININE, serum 0.69 mg/dL (0.57-1.11); TOTAL PROTEIN 6.9 gm/dL (6.2-8.1)
[2021-06-23] MEDS ORDERED: FLEXERIL 1010 MG/TAB PO (21:47)
[2021-06-23] MEDS ORDERED: NAPROSYN500 MG PO (21:47)
[2021-06-23 22:06] VITALS: BP 132/70; PULSE 76
== END 2021-06-23 22:06 | disposition home or self-care (01) ==
LOC: COL.ER 17:34
PROVIDERS: Nurse Practitioner Primary Care
DX: M54.50 Low back pain, unspecified (principal); I10 Essential (primary) hypertension; K21.9 Gastro-esophageal reflux disease without esophagitis; F41.9 Anxiety disorder, unspecified; G43.909 Migraine, unspecified, not intractable, without status migrainosus; F17.210 Nicotine dependence, cigarettes, uncomplicated; Z90.49 Acquired absence of other specified parts of digestive tract; Z32.02 Encounter for pregnancy test, result negative; Z79.899 Other long term (current) drug therapy
CPT/HCPCS: J1885; J2405; J7030

== ENCOUNTER 2021-06-30 12:48 | Emergency (ER) | payer BC ==
[~2021-06-30] VITALS: Ht 162.6 cm; Wt 50.0 kg
[~2021-06-30 12:48] MED LIST changes: +NAPROSYN500 MG PO
[2021-06-30 13:42] LABS: BASO % 0.4 % (0.0-2.0); EOS # 0.1 K/mm3 (0.0-0.7); GRAN # 7.8 K/mm3 (1.4-6.5); GRAN % 76.9 % (42.2-75.2); HEMATOCRIT 40.6 % (37.0-47.0); LYMPH # 1.7 K/mm3 (1.2-3.4); LYMPH % 16.5 % (20.0-51.0); MEAN CELL VOLUME 101 fl (80.0-100.0); MEAN CORPUSCULAR HEMOGLOBIN 35 pg (27.0-31.0); MEAN CORPUSCULAR HGB CONC 35 g/dl (33.0-37.0); MEAN PLATELET VOLUME 9.3 fl (7.4-10.4); MONO # 0.5 K/mm3 (0.1-0.6); MONO % 4.9 % (1.7-9.3); PLATELET COUNT 268 K/mm3 (130-400); RED BLOOD COUNT 4.04 M/mm3 (4.10-5.30); REDCELL DISTRIBUTION WIDTH-CV 11.9 % (11.5-14.5)
[2021-06-30 13:58] LABS: ALANINE AMINOTRANSFERASE 20 U/L (0-55); ALBUMIN 4.2 gm/dL (3.5-5.0); ALKALINE PHOSPHATASE 58 U/L (40-150); ANION GAP 7 mmol/L (7-16); AST,SGOT 17 U/L (5-34); BILIRUBIN,TOTAL 0.4 mg/dL (0.2-1.2); BLOOD UREA NITROGEN 13 mg/dL (7-19); CALCIUM 10.2 mg/dL (8.4-10.2); CARBON DIOXIDE 22 mmol/L (22-29); CHLORIDE 111 mmol/L (98-107); GLUCOSE 95 mg/dL (70-99); POTASSIUM 4.3 mmol/L (3.5-4.5); SODIUM 140 mmol/L (136-145); TOTAL PROTEIN 7.3 gm/dL (6.2-8.1)
[2021-06-30 14:00] LABS: ALCOHOL(ethanol),MEDICAL < 10 mg/dL (0-10)
[2021-06-30 14:05] LABS: TROPONIN-I < 0.010 ng/mL (0.00-0.033)
[2021-06-30] MEDS ORDERED: PERCOCET 325 MG1 TA2 PO (14:46)
[2021-06-30 15:00] VITALS: BP 122/64; PULSE 84; TEMP 98
== END 2021-06-30 15:00 | disposition home or self-care (01) ==
LOC: COL.ER 12:48
PROVIDERS: Physician Assistant
DX: M54.50 Low back pain, unspecified (principal); F43.10 Post-traumatic stress disorder, unspecified; F41.9 Anxiety disorder, unspecified; F17.200 Nicotine dependence, unspecified, uncomplicated; Z79.899 Other long term (current) drug therapy

== ENCOUNTER 2021-07-04 21:30 | Emergency (ER) | payer BC ==
[~2021-07-04] VITALS: Ht 162.6 cm; Wt 49.5 kg
[2021-07-04 21:43] VITALS: BP 122/79; PULSE 112; TEMP 98.6
[2021-07-05] MEDS ORDERED: NORCO 325 MG-51 TAB PO (18:41)
== END 2021-07-04 22:58 | disposition home or self-care (01) ==
LOC: COL.ER 21:30
DX: S40.011A Contusion of right shoulder, initial encounter (principal); S70.01XA Contusion of right hip, initial encounter; S09.90XA Unspecified injury of head, initial encounter; M54.50 Low back pain, unspecified; R55 Syncope and collapse; I10 Essential (primary) hypertension; F41.9 Anxiety disorder, unspecified; F43.10 Post-traumatic stress disorder, unspecified; G43.909 Migraine, unspecified, not intractable, without status migrainosus; K21.9 Gastro-esophageal reflux disease without esophagitis; F17.210 Nicotine dependence, cigarettes, uncomplicated; Z79.899 Other long term (current) drug therapy

== ENCOUNTER 2021-07-05 15:17 | Emergency (ER) | payer BC ==
[~2021-07-05] VITALS: Ht 162.6 cm; Wt 49.5 kg
[2021-07-05 15:25] VITALS: TEMP 99.1
[2021-07-05 16:06] LABS: BASO % 0.3 % (0.0-2.0); EOS % 0.4 % (0-4.0); GRAN # 8.4 K/mm3 (1.4-6.5); GRAN % 76.9 % (42.2-75.2); HEMATOCRIT 41.3 % (37.0-47.0); HEMOGLOBIN 14.1 g/dl (12.5-16.0); LYMPH # 1.6 K/mm3 (1.2-3.4); LYMPH % 14.9 % (20.0-51.0); MEAN CELL VOLUME 102 fl (80.0-100.0); MEAN CORPUSCULAR HEMOGLOBIN 35 pg (27.0-31.0); MEAN CORPUSCULAR HGB CONC 34 g/dl (33.0-37.0); MEAN PLATELET VOLUME 9.3 fl (7.4-10.4); MONO # 0.8 K/mm3 (0.1-0.6); MONO % 7.2 % (1.7-9.3); PLATELET COUNT 256 K/mm3 (130-400); RED BLOOD COUNT 4.07 M/mm3 (4.10-5.30); REDCELL DISTRIBUTION WIDTH-CV 12.3 % (11.5-14.5)
[2021-07-05 16:35] LABS: ALBUMIN 4.4 gm/dL (3.5-5.0); BILIRUBIN,TOTAL 0.5 mg/dL (0.2-1.2); CALCIUM 9.9 mg/dL (8.4-10.2); CREATININE, serum 0.65 mg/dL (0.57-1.11); TOTAL PROTEIN 7.6 gm/dL (6.2-8.1)
[2021-07-05] MEDS ORDERED: NORCO 325 MG-51 TAB PO (18:41)
[2021-07-05 19:04] VITALS: BP 124/98; PULSE 105
== END 2021-07-05 19:04 | disposition home or self-care (01) ==
LOC: COL.ER 15:17
PROVIDERS: Personal Emergency Response Attendant
DX: S70.01XA Contusion of right hip, initial encounter (principal); S40.011A Contusion of right shoulder, initial encounter; S09.90XA Unspecified injury of head, initial encounter; M54.9 Dorsalgia, unspecified; R55 Syncope and collapse; G43.909 Migraine, unspecified, not intractable, without status migrainosus; F17.210 Nicotine dependence, cigarettes, uncomplicated; Z79.899 Other long term (current) drug therapy
CPT/HCPCS: J2060; J2270; J2405; J7030

== ENCOUNTER 2021-07-27 21:51 | Emergency (ER) | payer BC ==
[~2021-07-27] VITALS: Ht 162.6 cm; Wt 51.4 kg
[2021-07-27 21:56] VITALS: TEMP 98.5
[2021-07-28 00:18] LABS: BASO # 0.1 K/mm3 (0.0-0.2); BASO % 0.6 % (0.0-2.0); EOS # 0.2 K/mm3 (0.0-0.7); GRAN # 4.8 K/mm3 (1.4-6.5); GRAN % 55.8 % (42.2-75.2); HEMATOCRIT 39.5 % (37.0-47.0); HEMOGLOBIN 13.5 g/dl (12.5-16.0); LYMPH # 2.8 K/mm3 (1.2-3.4); LYMPH % 32.9 % (20.0-51.0); MEAN CELL VOLUME 101 fl (80.0-100.0); MEAN CORPUSCULAR HEMOGLOBIN 35 pg (27.0-31.0); MEAN CORPUSCULAR HGB CONC 34 g/dl (33.0-37.0); MEAN PLATELET VOLUME 9.5 fl (7.4-10.4); MONO # 0.7 K/mm3 (0.1-0.6); MONO % 8.2 % (1.7-9.3); PLATELET COUNT 264 K/mm3 (130-400); RED BLOOD COUNT 3.91 M/mm3 (4.10-5.30); REDCELL DISTRIBUTION WIDTH-CV 12.1 % (11.5-14.5)
[2021-07-28 00:32] LABS: ALBUMIN 4.5 gm/dL (3.5-5.0); BILIRUBIN,TOTAL 0.3 mg/dL (0.2-1.2); C-REACTIVE PROTEIN 0.11 mg/dL (0.00-0.50); CALCIUM 9.6 mg/dL (8.4-10.2); CREATININE, serum 0.74 mg/dL (0.57-1.11); POTASSIUM 3.6 mmol/L (3.5-4.5)
[2021-07-28 00:52] LABS: COLLECTION METHOD CLEAN CATCH
[2021-07-28 00:57] LABS: MUCOUS Present /lpf; PH 5 (5-8); URINE APPEARANCE Hazy; URINE BACTERIA Rare /hpf; URINE BILIRUBIN Negative (NEGATIVE); URINE BLOOD Negative (NEGATIVE); URINE COLOR Yellow; URINE GLUCOSE Negative (NEGATIVE); URINE KETONE Negative (NEGATIVE); URINE LEUKOCYTE ESTERASE Negative (NEGATIVE); URINE NITRATE Negative (NEGATIVE); URINE PROTEIN(semi-quant) Negative (NEGATIVE); URINE RBC 0-2 /hpf; URINE UROBILINOGEN Negative (NEGATIVE)
[2021-07-28 02:20] VITALS: BP 118/70; PULSE 76
== END 2021-07-28 02:20 | disposition home or self-care (01) ==
LOC: COL.ER 21:51
PROVIDERS: Nurse Practitioner
DX: R10.31 Right lower quadrant pain (principal); K21.9 Gastro-esophageal reflux disease without esophagitis; G43.909 Migraine, unspecified, not intractable, without status migrainosus; Z87.442 Personal history of urinary calculi; Z79.899 Other long term (current) drug therapy; Z79.891 Long term (current) use of opiate analgesic
CPT/HCPCS: J1885; J2270; J2405; J7030

== ENCOUNTER → 2021-08-20 | Outpatient (CLI) | payer BC | LOC: COL.RAD 11:01 | DX: K63.89 Other specified diseases of intestine (principal); K31.89 Other diseases of stomach and duodenum; Z90.49 Acquired absence of other specified parts of digestive tract | CPT/HCPCS: Q9967 ==

== ENCOUNTER 2021-09-03 17:40 | Emergency (ER) | payer BC ==
[~2021-09-03] VITALS: Ht 162.6 cm; Wt 50.9 kg
[2021-09-03 17:57] VITALS: TEMP 98
[2021-09-03 20:19] VITALS: BP 132/90; PULSE 90
[2021-09-04] MEDS ORDERED: PERCOCET 325 MG1 TA2 PO (17:51)
== END 2021-09-03 20:20 | disposition home or self-care (01) ==
LOC: COL.ER 17:40
DX: S60.221A Contusion of right hand, initial encounter (principal); F17.210 Nicotine dependence, cigarettes, uncomplicated; W22.8XXA Striking against or struck by other objects, initial encounter

== ENCOUNTER 2021-09-04 16:54 | Emergency (ER) | payer BC ==
[~2021-09-04] VITALS: Ht 162.6 cm; Wt 50.5 kg
[2021-09-04 16:59] VITALS: BP 151/97; TEMP 98.7
[2021-09-04] MEDS ORDERED: PERCOCET 325 MG1 TA2 PO (17:51)
[2021-09-04 18:04] VITALS: PULSE 102
== END 2021-09-04 18:09 | disposition home or self-care (01) ==
LOC: COL.ER 16:54
DX: S60.221A Contusion of right hand, initial encounter (principal); F17.200 Nicotine dependence, unspecified, uncomplicated; Z88.5 Allergy status to narcotic agent; W22.8XXA Striking against or struck by other objects, initial encounter

== ENCOUNTER 2021-11-08 12:32 | Emergency (ER) | payer BC ==
[~2021-11-08] VITALS: Ht 162.6 cm; Wt 51.4 kg
[2021-11-08 12:43] VITALS: TEMP 97.8
[2021-11-08 14:25] VITALS: BP 122/75; PULSE 81
== END 2021-11-08 14:25 | disposition home or self-care (01) ==
LOC: COL.ER 12:32
DX: M62.830 Muscle spasm of back (principal); M25.511 Pain in right shoulder; F17.210 Nicotine dependence, cigarettes, uncomplicated; W01.198A Fall on same level from slipping, tripping and stumbling with subsequent striking against other object, initial encounter; Y93.E5 Activity, floor mopping and cleaning; Y92.009 Unspecified place in unspecified non-institutional (private) residence as the place of occurrence of the external cause
CPT/HCPCS: J1200; J1885

== ENCOUNTER 2021-12-03 09:52 | Day surgery (SDC) | payer BC ==
[~2021-12-03] VITALS: Ht 162.6 cm; Wt 48.5 kg
[2021-12-03] VITALS (10 sets, daily range): BP systolic 107–128; BP diastolic 63–97; PULSE 102–121; TEMP 98–98.3
[2021-12-03] MEDS ORDERED: PRILOSEC 20MG20 MG PO (12:19)
[2021-12-03] MEDS ORDERED: NURTEC ODT75 MG PO (12:20)
[2021-12-03] MEDS ORDERED: PERCOCET 325 MG1 TA2 PO (13:28)
[2021-12-03] MEDS ORDERED: MOTRIN 800800 MG/TAB PO (13:28)
--- NOTE | 2021-12-03 19:45 | NUR ---
SALINE LOCKED IV. PATIENT AMBULATED IN HALLWAY INDEPDENDENTLY.
[2021-12-04 02:40] VITALS: BP 101/75; PULSE 101; TEMP 97.8
[2021-12-04 05:34] VITALS: BP 106/74; PULSE 95; TEMP 98.1
[2021-12-04] MEDS ORDERED: ESTRACE 1MG1 MG/TAB PO (07:12)
--- NOTE | 2021-12-04 09:29 | NUR ---
PT ABLE TO SPONTANEOUSLY URINIATE, HOLD FOOD, AND WALK WITHOUT DIFFICULTY. DISCHARGE TEACHING COMPLETE. PT EDUCATED ON S/S OF INFECTION. FOLLOW UP APPOINTMENT AND MEDICATION INFORMATION GIVEN. NO OTHER CONCERNS AT THIS TIME. IV REMOVED PT ESCORTED OUT.
== END 2021-12-04 09:31 | disposition home or self-care (01) ==
LOC: SDCO 09:52 → OB 15:00 → SDCO 12-04 09:31
DX: N94.6 Dysmenorrhea, unspecified (principal); N80.0 Endometriosis of uterus; N83.292 Other ovarian cyst, left side; N83.291 Other ovarian cyst, right side; G89.29 Other chronic pain; F17.210 Nicotine dependence, cigarettes, uncomplicated; Z79.891 Long term (current) use of opiate analgesic
CPT/HCPCS: OP; A4314; J0690; J1100; J1170; J1885; J2405; J2704; J3010; J7120

== ENCOUNTER 2021-12-08 22:54 | Emergency (ER) | payer BC ==
[~2021-12-08] VITALS: Ht 162.6 cm; Wt 51.4 kg
[~2021-12-08 22:54] MED LIST changes: +ESTRACE 1MG1 MG/TAB PO; +NURTEC ODT75 MG PO; +PRILOSEC 20MG20 MG PO
[2021-12-08 23:05] VITALS: TEMP 97.8
[2021-12-08 23:38] LABS: BASO # 0.1 K/mm3 (0.0-0.2); BASO % 0.7 % (0.0-2.0); EOS # 0.5 K/mm3 (0.0-0.7); EOS % 6.1 % (0.0-4.0); GRAN # 3.6 K/mm3 (1.4-6.5); HEMOGLOBIN 11.3 g/dl (12.5-16.0); LYMPH # 2.7 K/mm3 (1.2-3.4); LYMPH % 35.6 % (20.0-51.0); MEAN CELL VOLUME 99 fl (80.0-100.0); MEAN CORPUSCULAR HEMOGLOBIN 34 pg (27-31); MEAN CORPUSCULAR HGB CONC 35 g/dl (33.0-37.0); MEAN PLATELET VOLUME 9.5 fl (7.4-10.4); MONO # 0.8 K/mm3 (0.1-0.6); MONO % 10.3 % (1.7-9.3); PLATELET COUNT 286 K/mm3 (130-400); RED BLOOD COUNT 3.29 M/mm3 (4.10-5.30); REDCELL DISTRIBUTION WIDTH-CV 12.2 % (11.5-14.5)
[2021-12-08 23:40] LABS: HEMATOCRIT 32.6 % (37.0-47.0)
[2021-12-08 23:53] LABS: ALBUMIN 3.9 gm/dL (3.5-5.0); BILIRUBIN,TOTAL 0.4 mg/dL (0.2-1.2); CALCIUM 9.1 mg/dL (8.4-10.2); CREATININE, serum 0.66 mg/dL (0.57-1.11); POTASSIUM 3.6 mmol/L (3.5-4.5); TOTAL PROTEIN 6.7 gm/dL (6.2-8.1)
[2021-12-09 01:34] VITALS: BP 127/90; PULSE 86
== END 2021-12-09 01:37 | disposition home or self-care (01) ==
LOC: COL.ER 22:54
PROVIDERS: Student in an Organized Health Care Education/Training Program
DX: S30.1XXA Contusion of abdominal wall, initial encounter (principal); Z90.710 Acquired absence of both cervix and uterus; W54.1XXA Struck by dog, initial encounter
CPT/HCPCS: J2270; Q9967

== ENCOUNTER 2021-12-20 13:40 | Emergency (ER) | payer BC ==
[~2021-12-20] VITALS: Ht 162.6 cm; Wt 50.5 kg
[2021-12-20 14:04] VITALS: TEMP 98.6
[2021-12-20 15:12] LABS: BASO # 0.1 K/mm3 (0.0-0.2); BASO % 0.5 % (0.0-2.0); EOS # 0.3 K/mm3 (0.0-0.7); EOS % 2.7 % (0.0-4.0); GRAN # 8.9 K/mm3 (1.4-6.5); GRAN % 69.7 % (42.2-75.2); HEMOGLOBIN 12.9 g/dl (12.5-16.0); LYMPH # 2.4 K/mm3 (1.2-3.4); LYMPH % 18.8 % (20.0-51.0); MEAN CELL VOLUME 98 fl (80.0-100.0); MEAN CORPUSCULAR HEMOGLOBIN 34 pg (27-31); MEAN CORPUSCULAR HGB CONC 35 g/dl (33.0-37.0); MEAN PLATELET VOLUME 9.1 fl (7.4-10.4); PLATELET COUNT 322 K/mm3 (130-400); RED BLOOD COUNT 3.76 M/mm3 (4.10-5.30); REDCELL DISTRIBUTION WIDTH-CV 12.7 % (11.5-14.5)
[2021-12-20 15:15] LABS: HEMATOCRIT 36.8 % (37.0-47.0)
[2021-12-20 15:29] LABS: BILIRUBIN,TOTAL 0.6 mg/dL (0.2-1.2); C-REACTIVE PROTEIN 8.57 mg/dL (0.00-0.50); CALCIUM 9.8 mg/dL (8.4-10.2); CREATININE, serum 0.65 mg/dL (0.57-1.11); POTASSIUM 3.5 mmol/L (3.5-4.5); TOTAL PROTEIN 7.7 gm/dL (6.2-8.1)
[2021-12-20 16:23] LABS: COLLECTION METHOD CLEAN CATCH
[2021-12-20 16:36] LABS: MUCOUS Present (NOT PRESENT); PH 6 (5-8); URINE APPEARANCE Hazy (CLEAR/HAZY); URINE BACTERIA None Seen /hpf (NONE SEEN); URINE BILIRUBIN Negative (NEGATIVE); URINE BLOOD Negative (NEGATIVE); URINE COLOR Yellow (YELLOW); URINE GLUCOSE Negative (NEGATIVE); URINE KETONE 1+ (NEGATIVE); URINE LEUKOCYTE ESTERASE Negative (NEGATIVE); URINE NITRATE Negative (NEGATIVE); URINE PROTEIN(semi-quant) 1+ (NEGATIVE); URINE RBC 0-2 /hpf (0-2); URINE UROBILINOGEN Negative (NEGATIVE)
[2021-12-20] MEDS ORDERED: ZOFRAN 4MG T4 MG/TAB PO (16:43)
[2021-12-20] MEDS ORDERED: PERCOCET 325 MG1 TA2 PO (16:50)
[2021-12-20 16:56] VITALS: BP 134/98; PULSE 100
== END 2021-12-20 16:58 | disposition home or self-care (01) ==
LOC: COL.ER 13:40
PROVIDERS: Family Medicine
DX: K52.9 Noninfective gastroenteritis and colitis, unspecified (principal); D72.829 Elevated white blood cell count, unspecified; F17.210 Nicotine dependence, cigarettes, uncomplicated; Z98.890 Other specified postprocedural states; Z20.822 Contact with and (suspected) exposure to COVID-19
CPT/HCPCS: J1170; J2405; J7120; Q9967

== ENCOUNTER 2022-01-02 15:58 | Emergency (ER) | payer BC ==
[~2022-01-02] VITALS: Ht 162.6 cm; Wt 49.1 kg
[2022-01-02 16:09] VITALS: BP 121/87; TEMP 98.2
[2022-01-02 17:50] VITALS: PULSE 105
== END 2022-01-02 17:50 | disposition home or self-care (01) ==
LOC: COL.ER 15:58
DX: S60.211A Contusion of right wrist, initial encounter (principal); W23.1XXA Caught, crushed, jammed, or pinched between stationary objects, initial encounter; Y93.E5 Activity, floor mopping and cleaning

== ENCOUNTER 2022-04-11 16:25 | Emergency (ER) | payer BC ==
[~2022-04-11] VITALS: Ht 162.6 cm; Wt 49.5 kg
[2022-04-11] MEDS ORDERED: PHENERGAN 25 TA25 MG PO (19:31)
[2022-04-11 20:20] VITALS: BP 126/104; PULSE 95; TEMP 98.7
== END 2022-04-11 20:21 | disposition home or self-care (01) ==
LOC: COL.ER 16:25
DX: R51.9 Headache, unspecified (principal)
CPT/HCPCS: J0595; J0780; J1100; J1200; J1885; J2550; J7030

== ENCOUNTER → 2022-04-20 | Outpatient (CLI) | payer BC ==
[~2022-04-20] MED LIST changes: +PHENERGAN 25 TA25 MG PO
== END ==
LOC: MHCPAIN 14:07
DX: M79.2 Neuralgia and neuritis, unspecified (principal); R26.89 Other abnormalities of gait and mobility; Z90.711 Acquired absence of uterus with remaining cervical stump; M54.50 Low back pain, unspecified

== ENCOUNTER 2022-05-11 12:47 | Emergency (ER) | payer BC ==
[~2022-05-11] VITALS: Ht 162.6 cm; Wt 49.5 kg
[2022-05-11 12:49] VITALS: TEMP 98.3
[2022-05-11] MEDS ORDERED: FLEXERIL 1010 MG/TAB PO (15:58)
[2022-05-11 16:00] VITALS: BP 128/90; PULSE 85
[2022-05-11] MEDS ORDERED: NORCO 325 MG-51 TAB PO (16:04)
== END 2022-05-11 16:15 | disposition home or self-care (01) ==
LOC: COL.ER 12:47
DX: S06.9X9A Unspecified intracranial injury with loss of consciousness of unspecified duration, initial encounter (principal); S16.1XXA Strain of muscle, fascia and tendon at neck level, initial encounter; S39.012A Strain of muscle, fascia and tendon of lower back, initial encounter; F17.200 Nicotine dependence, unspecified, uncomplicated; W10.9XXA Fall (on) (from) unspecified stairs and steps, initial encounter; Y93.01 Activity, walking, marching and hiking
CPT/HCPCS: J1885

== ENCOUNTER → 2022-07-15 | Outpatient (CLI) | payer BC | LOC: MHCPAIN 15:35 | DX: M54.50 Low back pain, unspecified (principal); M79.2 Neuralgia and neuritis, unspecified; M54.6 Pain in thoracic spine; M25.511 Pain in right shoulder; R26.89 Other abnormalities of gait and mobility; Z90.711 Acquired absence of uterus with remaining cervical stump; Z91.81 History of falling | CPT/HCPCS: G0463 ==

== ENCOUNTER 2022-12-14 17:34 | Emergency (ER) | payer OTHER, BC ==
[~2022-12-14] VITALS: Ht 162.6 cm; Wt 55.5 kg
[~2022-12-14 17:34] MED LIST changes: +AMOXICILLIN 50500 MG PO
[2022-12-14 18:07] LABS: COLLECTION METHOD CLEAN CATCH
[2022-12-14 18:15] LABS: HEMATOCRIT 37.4 % (37.0-47.0); HEMOGLOBIN 13.2 g/dl (12.5-16.0); MEAN CELL VOLUME 95 fl (80.0-100.0); MEAN CORPUSCULAR HEMOGLOBIN 33 pg (27-31); MEAN CORPUSCULAR HGB CONC 35 g/dl (33.0-37.0); PLATELET COUNT 330 K/mm3 (130-400); RED BLOOD COUNT 3.95 M/mm3 (4.10-5.30); REDCELL DISTRIBUTION WIDTH-CV 11.9 % (11.5-14.5)
[2022-12-14 18:30] LABS: PH 6.5 (5.0-8.5); URINE APPEARANCE Cloudy (CLEAR/HAZY); URINE COLOR Amber (YELLOW); URINE GLUCOSE Negative (NEGATIVE); URINE PROTEIN(semi-quant) TRACE (NEGATIVE)
[2022-12-14 18:31] LABS: URINE BLOOD 3+ (NEGATIVE); URINE KETONE TRACE (NEGATIVE); URINE NITRATE Negative (NEGATIVE)
[2022-12-14 18:32] LABS: MUCOUS Present (NOT PRESENT); SQUAMOUS EPITHELIAL 20-50 /hpf (0-10); URINE BACTERIA Rare /hpf (NONE SEEN); URINE RBC >50 /hpf (0-2)
[2022-12-14 18:39] LABS: ALBUMIN 4.1 gm/dL (3.5-5.0); BILIRUBIN,TOTAL 0.3 mg/dL (0.2-1.2); C-REACTIVE PROTEIN 0.2 mg/dL (0.00-0.50); CALCIUM 9.2 mg/dL (8.4-10.2); CREATININE, serum 0.74 mg/dL (0.57-1.11); POTASSIUM 3.8 mmol/L (3.5-4.5); TOTAL PROTEIN 7.3 gm/dL (6.2-8.1)
[2022-12-14 19:06] LABS: BAND 3 % (0-10); EOSINOPHIL 2 % (0-4); LYMPHOCYTE 37 % (20.0-51.0); NEUTROPHILS 54 % (42.0-75.2); PLATELET ESTIMATE NORMAL (NORMAL)
[2022-12-14] MEDS ORDERED: PERCOCET 325 MG1 TA2 PO (20:21)
[2022-12-14 21:15] VITALS: BP 126/93; PULSE 85; TEMP 97.3
== END 2022-12-14 21:10 | disposition home or self-care (01) ==
LOC: COL.ER 17:34
PROVIDERS: Emergency Medicine; Physician Assistant
DX: R10.31 Right lower quadrant pain (principal); R31.9 Hematuria, unspecified; R30.0 Dysuria; K92.89 Other specified diseases of the digestive system; F17.200 Nicotine dependence, unspecified, uncomplicated; Z79.899 Other long term (current) drug therapy; Z90.49 Acquired absence of other specified parts of digestive tract
CPT/HCPCS: J3010; J7030

== ENCOUNTER 2023-01-04 17:32 | Emergency (ER) | payer OTHER, BC ==
[~2023-01-04] VITALS: Ht 162.6 cm; Wt 56.8 kg
[2023-01-04 18:47] LABS: BASO # 0.1 K/mm3 (0.0-0.2); BASO % 0.6 % (0.0-2.0); EOS # 0.3 K/mm3 (0.0-0.7); EOS % 2.6 % (0.0-4.0); GRAN # 6.4 K/mm3 (1.4-6.5); GRAN % 61.1 % (42.2-75.2); HEMOGLOBIN 12.5 g/dl (12.5-16.0); LYMPH # 2.7 K/mm3 (1.2-3.4); LYMPH % 25.9 % (20.0-51.0); MEAN CELL VOLUME 96 fl (80.0-100.0); MEAN CORPUSCULAR HEMOGLOBIN 33 pg (27-31); MEAN CORPUSCULAR HGB CONC 35 g/dl (33.0-37.0); MEAN PLATELET VOLUME 9.8 fl (7.4-10.4); MONO % 9.5 % (1.7-9.3); PLATELET COUNT 230 K/mm3 (130-400); RED BLOOD COUNT 3.74 M/mm3 (4.10-5.30); REDCELL DISTRIBUTION WIDTH-CV 11.8 % (11.5-14.5)
[2023-01-04 18:49] LABS: HEMATOCRIT 35.8 % (37.0-47.0)
[2023-01-04 19:03] LABS: ALBUMIN 4.4 gm/dL (3.5-5.0); BILIRUBIN,TOTAL 0.3 mg/dL (0.2-1.2); CALCIUM 9.5 mg/dL (8.4-10.2); CREATININE, serum 0.82 mg/dL (0.57-1.11); POTASSIUM 4.1 mmol/L (3.5-4.5); TOTAL PROTEIN 7.3 gm/dL (6.2-8.1)
[2023-01-04 19:13] VITALS: BP 125/95; PULSE 100; TEMP 97.5
== END 2023-01-04 20:20 | disposition home or self-care (01) ==
LOC: COL.ER 17:32
PROVIDERS: Physician Assistant
DX: R60.0 Localized edema (principal); M54.9 Dorsalgia, unspecified; G89.29 Other chronic pain; F17.290 Nicotine dependence, other tobacco product, uncomplicated; Z79.899 Other long term (current) drug therapy
CPT/HCPCS: J1885

== ENCOUNTER 2023-01-12 09:51 | Emergency (ER) | payer OTHER, BC ==
[~2023-01-12] VITALS: Ht 157.5 cm; Wt 58.2 kg
[2023-01-12 09:51] VITALS: TEMP 98.4
[2023-01-12 11:35] VITALS: BP 134/92; PULSE 88
== END 2023-01-12 11:36 | disposition left against medical advice (07) ==
LOC: COL.ER 10:58
DX: S09.90XA Unspecified injury of head, initial encounter (principal); S16.1XXA Strain of muscle, fascia and tendon at neck level, initial encounter; S20.212A Contusion of left front wall of thorax, initial encounter; S70.02XA Contusion of left hip, initial encounter; F17.210 Nicotine dependence, cigarettes, uncomplicated; W08.XXXA Fall from other furniture, initial encounter; W22.8XXA Striking against or struck by other objects, initial encounter
CPT/HCPCS: J1885; J3360

== ENCOUNTER 2023-01-20 18:29 | Emergency (ER) | payer OTHER, BC ==
[~2023-01-20] VITALS: Ht 162.6 cm; Wt 58.2 kg
[2023-01-20 18:36] VITALS: BP 124/79; PULSE 112; TEMP 98.8
[2023-01-20] MEDS ORDERED: CRUTCHES MC (19:23)
== END 2023-01-20 19:49 | disposition home or self-care (01) ==
LOC: COL.ER 18:29
DX: S93.491A Sprain of other ligament of right ankle, initial encounter (principal); F17.200 Nicotine dependence, unspecified, uncomplicated; W22.8XXA Striking against or struck by other objects, initial encounter; X50.1XXA Overexertion from prolonged static or awkward postures, initial encounter

== ENCOUNTER 2024-02-29 01:56 | Emergency (ER) | payer SELFPAY ==
[~2024-02-29] VITALS: Ht 162.6 cm; Wt 58.2 kg
[~2024-02-29 01:56] MED LIST changes: +CRUTCHES MC
[2024-02-29] MEDS ORDERED: NS 1,000 ML IV ONE (02:30)
[2024-02-29] MEDS ORDERED: diphenhydrAMINE 50 MG/ML 1 ML VIAL IV ONE (02:30)
[2024-02-29] MEDS ORDERED: Ketorolac 15 MG/ML VIAL IV ONE (02:30)
[2024-02-29 03:55] VITALS: BP 144/91; PULSE 93; TEMP 97.9
== END 2024-02-29 03:55 | disposition home or self-care (01) ==
LOC: COL.ER 01:56
DX: R51.9 Headache, unspecified (principal); Z86.69 Personal history of other diseases of the nervous system and sense organs
CPT/HCPCS: J0780; J1200; J1885; J7030

== ENCOUNTER 2024-03-08 04:47 | Emergency (ER) | payer OTHER ==
[~2024-03-08] VITALS: Ht 162.6 cm; Wt 58.2 kg
[2024-03-08 04:58] VITALS: TEMP 98.6
[2024-03-08] MEDS ORDERED: Ondansetron 4 MG/2 ML VIAL IV ONE (05:15)
[2024-03-08] MEDS ORDERED: Ketorolac 30 MG/ML VIAL IV ONE (05:15)
[2024-03-08] MEDS ORDERED: NS 500 ML IV ONE (05:15)
[2024-03-08 05:27] LABS: BASO # 0.1 K/mm3 (0.0-0.2); BASO % 0.5 % (0.0-2.0); EOS # 0.2 K/mm3 (0.0-0.7); EOS % 1.7 % (0.0-4.0); GRAN # 5.9 K/mm3 (1.4-6.5); GRAN % 61.4 % (42.2-75.2); HEMATOCRIT 38.1 % (37.0-47.0); HEMOGLOBIN 13.2 g/dl (12.5-16.0); LYMPH # 2.8 K/mm3 (1.2-3.4); LYMPH % 28.5 % (20.0-51.0); MEAN CELL VOLUME 101 fl (80.0-100.0); MEAN CORPUSCULAR HEMOGLOBIN 35 pg (27-31); MEAN CORPUSCULAR HGB CONC 35 g/dl (33.0-37.0); MEAN PLATELET VOLUME 9.2 fl (7.4-10.4); MONO # 0.7 K/mm3 (0.1-0.6); MONO % 7.7 % (1.7-9.3); PLATELET COUNT 317 K/mm3 (130-400); RED BLOOD COUNT 3.79 M/mm3 (4.10-5.30); REDCELL DISTRIBUTION WIDTH-CV 12.4 % (11.5-14.5)
[2024-03-08 05:50] LABS: ALBUMIN 4.2 g/dL (3.5-5.0); BILIRUBIN,TOTAL 0.3 mg/dL (0.2-1.2); CALCIUM 9.3 mg/dL (8.4-10.2); CREATININE, serum 0.76 mg/dL (0.57-1.11); POTASSIUM 3.5 mEq/L (3.5-4.5); TOTAL PROTEIN 7.6 g/dl (6.2-8.1)
[2024-03-08] MEDS ORDERED: Iohexol 300 - 100 ML VIAL IV ONE (06:13)
[2024-03-08] MEDS ORDERED: NS 50 ML IV ONE (06:15)
[2024-03-08 06:41] LABS: COLLECTION METHOD CLEAN CATCH
[2024-03-08 06:54] LABS: PH 6.5 (5.0-8.5); URINE APPEARANCE CLOUDY (CLEAR/HAZY); URINE BLOOD 3+ (NEGATIVE); URINE COLOR YELLOW (YELLOW); URINE GLUCOSE NEGATIVE (NEGATIVE); URINE KETONE NEGATIVE (NEGATIVE); URINE NITRATE NEGATIVE (NEGATIVE); URINE PROTEIN(semi-quant) NEGATIVE (NEGATIVE); URINE UROBILINOGEN 0.2 E.U/dL (0.2-1.0)
[2024-03-08] MEDS ORDERED: PHENERGAN 25 TA25 MG PO (06:58)
[2024-03-08] MEDS ORDERED: Promethazine 25 MG TAB PO ONE (07:00)
[2024-03-08] MEDS ORDERED: MACROBID 1100 MG/CAP PO (07:08)
[2024-03-08 07:34] VITALS: BP 122/88; PULSE 85
== END 2024-03-08 08:06 | disposition home or self-care (01) ==
LOC: COL.ER 04:47
PROVIDERS: Internal Medicine
DX: M54.50 Low back pain, unspecified (principal); R31.9 Hematuria, unspecified; R11.0 Nausea; R10.30 Lower abdominal pain, unspecified; F17.200 Nicotine dependence, unspecified, uncomplicated; Z90.49 Acquired absence of other specified parts of digestive tract
CPT/HCPCS: J1885; J2405; J7040; Q9967